=== PATIENT | female | born 1975 | race Caucasian/White ===

== ENCOUNTER 2020-11-17 12:09 | Emergency (ER) | payer OTHER ==
[2020-11-17] MEDS ORDERED: Sodium Chloride 0.9% 10 ML Syringe FLUSH PRN (12:28)
[2020-11-17] MEDS: Sodium Chloride 0.9% 1,000 ML IV ONE (13:00)
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
[2020-11-17 13:37] LABS: CHLORIDE,CL 102 mmol/L (98-107); SODIUM,NA 140 mmol/L (136-145)
[2020-11-17 13:38] LABS: ANION GAP 12.4 mmol/L (5-15)
--- NOTE | 2020-11-17 14:32 | CT ---
[id number] CT/CT Head WO IV EXAM: CT Head WO IV CLINICAL DATA: SYNCOPE. HEADACHE COMPARISON: No previous similar exam is available for comparison. FINDINGS: There is no mass or mass effect. There is no hemorrhage or hydrocephalus. There are no extra-axial fluid collections. There are no sites of abnormal attenuation. IMPRESSION: NO PLAIN CT EVIDENCE OF ACUTE INTRACRANIAL PROCESS. Gurdeep Olivares MD 11/17/20 1253 Thank you for allowing us to participate in the care of your patient.
== END 2020-11-17 15:12 | disposition home or self-care (01) ==
LOC: SUPCPDRO 12:09 → VM.ED 12:09
DX: I44.30 Unspecified atrioventricular block (principal); R55 Syncope and collapse; Z88.0 Allergy status to penicillin; Z88.1 Allergy status to other antibiotic agents
CPT/HCPCS: 70450; 80053; 81001; 82947; 83735; 84484; 85025; 93005; 93010; 99284; 99284-25; J7030